=== PATIENT | female | born 1990 | race Caucasian/White ===

== ENCOUNTER 2017-07-09 21:38 | Emergency (ER) | payer OTHER ==
[~2017-07-09] VITALS: Ht 160 cm; Wt 109.0 kg
[2017-07-09 21:46] VITALS: BP 148/67
--- NOTE | 2017-07-09 22:29 | NUR ---
26Y F BIB FAMILY C/O SUPRAPUBIC PAIN X 1 HOUR. PT STATES PAIN IS CRAMPING IN SENSATION. PT DENIES ANY N/V/D, SOB, CP AT THE MOMENT. PT AAOX4. BREATHING IS UNLABORED AND CLEAR. PT DENIES ANY DIFFICULTY GOING TO THE BATHROOM. ER MD MADE AWARE
--- NOTE | 2017-07-09 22:45 | NUR ---
Patient being evaluated by physician at bedside.
[2017-07-09 23:44] VITALS: BP 132/71
--- NOTE | 2017-07-09 23:44 | NUR ---
Patient discharged with v/s stable. Written and verbal after care instructions given and explained. Patient verbalized understanding. Ambulatory with steady gait. All questions addressed prior to discharge. Advised to follow up with PMD.
== END 2017-07-09 23:44 | disposition home or self-care (01) ==
LOC: MED 21:38
DX: R10.30 Lower abdominal pain, unspecified (principal); R39.198 Other difficulties with micturition
CPT/HCPCS: 74018; 81002; 81025; 99283